=== PATIENT | male | born 1945 | race Caucasian/White ===

== ENCOUNTER 2017-11-26 18:20 | Emergency (ER) | payer MEDICARE, BC ==
--- NOTE | 2017-11-26 19:05 | NUR ---
PT CALLED IN LOBBY NO CALL
--- NOTE | 2017-11-26 20:52 | NUR ---
NO ANSWER IN LOBBY
== END 2017-11-26 20:53 | disposition left against medical advice (07) ==
LOC: ER 18:28
DX: Z53.21 Procedure and treatment not carried out due to patient leaving prior to being seen by health care provider (principal)